=== PATIENT | male | born 1985 | race Caucasian/White ===

== ENCOUNTER 2022-12-01 14:21 | Emergency (ER) | payer OTHER ==
[~2022-12-01] VITALS: Ht 180.3 cm; Wt 99.8 kg
[2022-12-01] MEDS ORDERED: HYDR1TAB94 PO (15:59)
[2022-12-01] MEDS ORDERED: ONDA4ODT MM (15:59)
== END 2022-12-01 16:10 | disposition home or self-care (01) ==
LOC: ER 14:21
DX: S42.021A Displaced fracture of shaft of right clavicle, initial encounter for closed fracture (principal); W01.0XXA Fall on same level from slipping, tripping and stumbling without subsequent striking against object, initial encounter; I10 Essential (primary) hypertension
CPT/HCPCS: 73000; J1885

== ENCOUNTER 2022-12-09 10:20 | Day surgery (SDC) | payer OTHER ==
[~2022-12-09] VITALS: Ht 180.3 cm; Wt 97.6 kg
[~2022-12-09 10:20] MED LIST: ACET500 PO; HYDR1TAB94 PO; IBUP800 PO; ONDA4ODT MM
--- NOTE | 2022-12-09 12:56 | NUR ---
PRE OP NOTE Ambulatory in Day Surgery History, Chart, Medications and Allergies reviewed before start of procedure.Lungs clear T/O to Auscultation. Patient confirms NPO status and agrees with scheduled surgery. Pre-Op teaching done. Pt verbalizes understanding. Patient States Post-Procedure ride home has been arranged.
--- NOTE | 2022-12-09 14:22 | NUR ---
12/09/221421 Shahrzad Allen PATIENT ARRIVED TO OR WITH YELLOW BRUISING PRESENT ON RIGHT SHOULDER AND CHEST CONSISTENT WITH FALL WITH INJURY. ALSO NOTED REDNESS IN RIGHT AXILLA AREA. NOTIFIED.
--- NOTE | 2022-12-09 18:04 | NUR ---
1702 RECEIVED PT FROM PACU, PT AWAKE VSS. RT SHOULDER DRESSING DRY AND INTACT. GOOD CIRCULATION IN RIGHT HAND FINGERS. HAVING SLIGHT NAUSEA AND PAIN 7/10. ZOFRAN GIVEN 1714 DAGOBERTO PO WATER AND CRACKERS, AND PO PAIN PILL 1744 2ND PAIN ILL GIVEN, DC INSTRUCTION REVIEWED PT VERBALIZE UNDERSTANDING 180 DC HOME TO CAR VIA W/C CARE TURNED OVER TO FAMILY MEMBER
== END 2022-12-09 23:38 | disposition home or self-care (01) ==
LOC: ORSCMMR 10:20 → ORD 11:30 → ORSCMMR 23:38
PROVIDERS: Orthopaedic Surgery
PROC: 0PS904Z Reposition Right Clavicle with Internal Fixation Device, Open Approach (ICD-10-PCS; principal; 2022-12-09 13:30)
DX: S42.001A Fracture of unspecified part of right clavicle, initial encounter for closed fracture (principal); G47.33 Obstructive sleep apnea (adult) (pediatric); F41.9 Anxiety disorder, unspecified
CPT/HCPCS: A9270; C1713; J0690; J1100; J1170; J2405; J2704; J2765; J3010; J7120